=== PATIENT | female | born 1955 | race Two or more races ===

== ENCOUNTER 2022-09-13 10:38 | Outpatient (CLI) | payer OTHER ==
[~2022-09-13 10:38] MED LIST: LOSARTAN; MOTRIN800 MG PO; ZOFRAN4 MG PO; ZYRTEC10 MG PO
== END 2022-09-13 10:43 | disposition home or self-care (01) ==
LOC: RAD 10:38
PROVIDERS: ATTEND Ophthalmology
DX: Z98.42 Cataract extraction status, left eye (principal); H25.012 Cortical age-related cataract, left eye

== ENCOUNTER 2022-12-01 10:12 | Emergency (ER) | payer OTHER ==
[~2022-12-01] VITALS: Ht 149.9 cm; Wt 50.3 kg
[2022-12-01] MEDS ORDERED: AMLODIPINE-OLM1 EACH (10:48)
[2022-12-01] MEDS ORDERED: TOPROL XL50 M1 (10:49)
[2022-12-01] MEDS ORDERED: ATORVASTATIN CA20 MG (10:49)
[2022-12-01] MEDS ORDERED: ANTIVERT25 M2 PO (12:39)
== END 2022-12-01 12:49 | disposition home or self-care (01) ==
LOC: ER 10:12
DX: R42 Dizziness and giddiness (principal); E78.00 Pure hypercholesterolemia, unspecified; I10 Essential (primary) hypertension

== ENCOUNTER 2023-06-04 11:46 | Emergency (ER) | payer OTHER ==
[~2023-06-04] VITALS: Ht 154.9 cm; Wt 48.5 kg
[~2023-06-04 11:46] MED LIST changes: +AMLODIPINE-OLM1 EACH; +ANTIVERT25 M2 PO; +ATORVASTATIN CA20 MG; +TOPROL XL50 M1
[2023-06-04 14:14] LABS: HEMATOCRIT 36.3 % (36.0-45.00); HEMOGLOBIN 11.7 g/dL (12.0-15.00); MEAN CELL VOLUME 88.3 fL (80.00-100.00); MEAN CORPUSCULAR HEMOGLOBIN 28.5 pg (27.00-32.0); MEAN CORPUSCULAR HGB CONC 32.3 g/dl (32.0-36.0); PLATELET COUNT 282 K/uL (150-450); RED BLOOD COUNT 4.11 M/uL (4.00-6.00); RED CELL DISTRIBUTION WIDTH 13.2 % (11.5-14.5)
[2023-06-04 15:07] LABS: CALCIUM 9.9 mg/dL (8.5-10.1); CREATININE SERUM 0.89 mg/dL (0.55-1.02); GFR 62.89; POTASSIUM 4.32 mEq/L (3.5-5.1)
== END 2023-06-04 17:13 | disposition home or self-care (01) ==
LOC: ER 11:46
PROVIDERS: General Practice
DX: R42 Dizziness and giddiness (principal); I10 Essential (primary) hypertension; Z20.822 Contact with and (suspected) exposure to COVID-19